=== PATIENT | male | born 1975 | race Caucasian/White ===

== ENCOUNTER 2018-12-11 01:16 | Emergency (ER) | payer OTHER ==
[~2018-12-11] VITALS: Ht 182.9 cm; Wt 72.0 kg
[2018-12-11 01:18] VITALS: BP 125/84
== END 2018-12-11 04:51 | disposition left against medical advice (07) ==
LOC: ER 01:16
DX: Z53.21 Procedure and treatment not carried out due to patient leaving prior to being seen by health care provider (principal)

== ENCOUNTER 2018-12-12 07:10 | Emergency (ER) | payer OTHER ==
[~2018-12-12] VITALS: Ht 185.4 cm; Wt 77.0 kg
[2018-12-12] MEDS ORDERED: LORAZEPAM 2MG/ML CPJ IV STA (07:48)
[2018-12-12] MEDS ORDERED: LEVETIRACETAM 1000MG/100ML 100 ML IV ONE (08:00)
[2018-12-12 08:16] LABS: BASOPHILS % 0.5 % (0.0-2.0); EOSINOPHILS % 0.8 % (0.0-5.0); HEMATOCRIT. 45.7 % (42.0-52.0); HEMOGLOBIN. 15.5 g/dL (14.0-18.0); LYMPHOCYTES % 14.1 % (20.0-50.0); MEAN CORPUSCULAR HEMOGLOBIN 30.4 pg (28.0-32.0); MEAN CORPUSCULAR VOLUME 89.7 fL (80.0-94.0); MEAN PLATELET VOLUME 7.9 fl (7.4-10.4); MONOCYTES % 7.7 % (2.0-8.0); NEUTROPHILS % 76.9 % (40.0-76.0); PLATELET 388 x1000/uL (130-400); RED CELL DISTRIBUTION WIDTH 12.7 % (11.6-14.6)
[2018-12-12 08:21] LABS: CHLORIDE 107 mEq/L (98-107)
[2018-12-12 08:26] LABS: ETHANOL BLOOD < 10 mg/dL
[2018-12-12 08:46] LABS: *BARBITURATES SCREEN URINE NEGATIVE (NEGATIVE); *BENZODIAZEPINES SCREEN URINE PRESUMTIVE POSITIVE (NEGATIVE)
[2018-12-12 08:47] LABS: *AMPHETAMINES SCREEN URINE NEGATIVE (NEGATIVE); *COCAINE SCREEN URINE NEGATIVE (NEGATIVE); CANNABINOID URINE SCREEN NEGATIVE (NEGATIVE); METHADONE URINE SCREEN NEGATIVE (NEGATIVE); OPIATES URINE SCREEN NEGATIVE (NEGATIVE); PHENCYCLIDINE URINE SCREEN NEGATIVE (NEGATIVE)
[2018-12-12 14:54] VITALS: BP 128/78
== END 2018-12-12 14:45 | disposition home or self-care (01) ==
LOC: ER 07:10
DX: R44.0 Auditory hallucinations (principal); R56.9 Unspecified convulsions
CPT/HCPCS: 36415; 70450; 80053; 80305; 80307; 80320; 80329; 84443; 85025; 96365; 96375; 99284; J1953; J2060; Z7610; G0480